=== PATIENT | female | born 1950 | race Caucasian/White ===

== ENCOUNTER 2017-12-27 14:03 | Emergency (ER) | payer MEDICARE, OTHER, SELFPAY ==
[~2017-12-27] VITALS: Ht 177.8 cm; Wt 98.3 kg
[2017-12-27 14:44] LABS: BASOPHILS # (AUTO) 0.04 x10^3/uL (0-0.1); BASOPHILS % (AUTO) 0 % (0-1); EOSINOPHILS # (AUTO) 0.01 x10^3/uL (0-0.4); EOSINOPHILS % (AUTO) 0 % (1-7); LYMPHOCYTES # (AUTO) 1.44 x10^3/uL (1-3.4); LYMPHOCYTES % (AUTO) 16 % (22-44); MD NO; MEAN CORPUSCULAR HEMOGLOBIN 30.8 pg (27.0-34.8); MEAN CORPUSCULAR HGB CONC 34.3 g/dL (32.4-35.8); MEAN CORPUSCULAR VOLUME 89.9 fL (80-100); MEAN PLATELET VOLUME 8.3 fL (7.4-10.4); MONOCYTES # (AUTO) 0.41 x10^3/uL (0.2-0.8); MONOCYTES % (AUTO) 4 % (2-9); NEUTROPHILS # (AUTO) 7.29 x10^3/uL (1.8-6.8); NEUTROPHILS % (AUTO) 79 % (42-75); PLATELET COUNT 291 x10^3/uL (130-400); RED BLOOD COUNT 5.55 x10^6/uL (3.82-5.3); RED CELL DISTRIBUTION WIDTH 13.6 % (9.6-15.2)
[2017-12-27 14:51] LABS: ALBUMIN 4.6 g/dL (3.4-5.0); ANION GAP 10 mmol/L (5-15); CALCIUM 9.8 mg/dL (8.5-10.1); CHLORIDE 105 mmol/L (98-107); CREATININE 1.18 mg/dL (0.55-1.02)
[2017-12-27 15:09] LABS: INTERNATIONAL NORMALIZED RATIO 1.02 (0.93-1.1); PROTHROMBIN TIME 10.6 Seconds (9.6-11.5)
[2017-12-27 15:27] LABS: HCT (SEDRATE) 49.9 % (34.6-47.8)
[2017-12-27] MEDS ORDERED: SODIUM CHLORIDE 0.9% 1,000ML IVBOLUS ONE (15:30)
[2017-12-27] MEDS ORDERED: SODIUM CHLORIDE FLUSH 10ML SYR IVF ONE (15:30)
[2017-12-27] MEDS ORDERED: LABETALOL 5MG/ML, 20ML ONE (15:56)
[2017-12-27] MEDS ORDERED: LABETALOL 5MG/ML, 20ML IVPush ONE (16:30)
[2017-12-27 16:39] LABS: CULTURE INDICATED? NO; MICROSCOPIC AUTO
[2017-12-27] MEDS ORDERED: ENALAPRILAT 1.25 MG/ML, 2ML ONE (16:54)
[2017-12-27] MEDS ORDERED: hydrALAzine 20 MG/ML, 1ML IV ONE (17:00)
[2017-12-27] MEDS ORDERED: ENALAPRILAT 1.25 MG/ML, 2ML IV ONE (17:00)
[2017-12-27 17:13] VITALS: BP 138/67
== END 2017-12-27 18:06 | disposition home or self-care (01) ==
LOC: ED 18:00
DX: R51 Headache (principal); S16.1XXA Strain of muscle, fascia and tendon at neck level, initial encounter; F17.200 Nicotine dependence, unspecified, uncomplicated; X58.XXXA Exposure to other specified factors, initial encounter; Y93.89 Activity, other specified; Y99.8 Other external cause status; Y92.89 Other specified places as the place of occurrence of the external cause
CPT/HCPCS: 36415; 70450; 80048; 81001; 82040; 85025; 85610; 85651; 93005; 96374; 96375; 99285; J7030